=== PATIENT | female | born 1950 | race Native Hawaiian/Other Pacific Islander ===

== ENCOUNTER 2016-08-14 12:26 | Outpatient (CLI) | payer OTHER ==
[~2016-08-14 12:26] MED LIST: FLUT0.05 NAS; HYDR10TA47 PO; HYDR25TA15 PO; MONT10TA PO; PREDNISONE10 M1 PO; PRISTIQ100 MG PO; TRAZODONE300 MG PO; ZANTAC300 MG PO
[2016-08-14 12:44] LABS: PLATELET COUNT 265 K/uL (152-353)
[2016-08-14 13:21] LABS: POTASSIUM 4.5 mmol/L (3.6-5.2)
== END 2016-08-14 19:09 | disposition home or self-care (01) ==
LOC: LAB 12:26
PROVIDERS: Nurse Practitioner Family
DX: K21.9 Gastro-esophageal reflux disease without esophagitis (principal); Z00.00 Encounter for general adult medical examination without abnormal findings; Z79.899 Other long term (current) drug therapy; E78.5 Hyperlipidemia, unspecified; R73.9 Hyperglycemia, unspecified
CPT/HCPCS: 80053; 80061; 82306; 82607; 83036; 84439; 84443; 85027; 86803

== ENCOUNTER 2016-12-13 14:03 | Outpatient (CLI) | payer OTHER ==
[2016-12-13 14:31] LABS: POTASSIUM 4.3 mmol/L (3.6-5.2)
[2016-12-13 14:35] LABS: PLATELET COUNT 240 K/uL (152-353)
== END 2016-12-13 19:02 | disposition home or self-care (01) ==
LOC: LAB 14:03
PROVIDERS: Nurse Practitioner Family
DX: Z00.00 Encounter for general adult medical examination without abnormal findings (principal); R19.09 Other intra-abdominal and pelvic swelling, mass and lump; M79.89 Other specified soft tissue disorders; N39.0 Urinary tract infection, site not specified
CPT/HCPCS: 80053; 81000; 85027; 87086; 87088

== ENCOUNTER 2019-11-05 09:03 | Outpatient (CLI) | payer OTHER | END 2019-11-05 14:14 | disposition home or self-care (01) | LOC: RAD 09:03 | PROVIDERS: ATTEND Nurse Practitioner Family | DX: R11.0 Nausea (principal); R10.9 Unspecified abdominal pain ==

== ENCOUNTER 2019-11-09 09:26 | Outpatient (CLI) | payer OTHER | END 2019-11-09 23:59 | disposition home or self-care (01) | LOC: RESP 09:26 | DX: R07.89 Other chest pain (principal) ==

== ENCOUNTER 2019-11-12 07:27 | Outpatient (CLI) | payer OTHER ==
[~2019-11-12] VITALS: Ht 160 cm; Wt 68.0 kg
== END 2019-11-12 19:14 | disposition home or self-care (01) ==
LOC: NM 07:27
DX: R07.89 Other chest pain (principal)
CPT/HCPCS: A9500; J2785

== ENCOUNTER 2020-03-03 07:57 | Outpatient (CLI) | payer OTHER | END 2020-03-03 19:00 | disposition home or self-care (01) | LOC: US 07:57 | PROVIDERS: ATTEND Internal Medicine Cardiovascular Disease | DX: R09.89 Other specified symptoms and signs involving the circulatory and respiratory systems (principal) ==

== ENCOUNTER 2020-07-08 12:30 | Outpatient (CLI) | payer OTHER | END 2020-07-08 21:49 | disposition home or self-care (01) | LOC: MAMMO 12:30 → RAD 13:30 → MAMMO 21:49 | PROVIDERS: ATTEND Nurse Practitioner Family | DX: Z12.31 Encounter for screening mammogram for malignant neoplasm of breast (principal); Z13.820 Encounter for screening for osteoporosis; N95.8 Other specified menopausal and perimenopausal disorders ==

== ENCOUNTER 2021-03-22 09:33 | Outpatient (CLI) | payer OTHER | END 2021-03-22 20:21 | disposition home or self-care (01) | LOC: LABW 09:33 | PROVIDERS: ATTEND Nurse Practitioner Family | DX: K21.9 Gastro-esophageal reflux disease without esophagitis (principal); R41.82 Altered mental status, unspecified; I99.8 Other disorder of circulatory system; I63.9 Cerebral infarction, unspecified; R06.09 Other forms of dyspnea | CPT/HCPCS: 36415; 81000; 83880 ==

== ENCOUNTER 2021-03-30 07:43 | Outpatient (CLI) | payer OTHER | END 2021-03-30 19:21 | disposition home or self-care (01) | LOC: MRI 07:43 | PROVIDERS: ATTEND Nurse Practitioner Family | DX: K21.9 Gastro-esophageal reflux disease without esophagitis (principal); R41.82 Altered mental status, unspecified; I99.8 Other disorder of circulatory system; I63.9 Cerebral infarction, unspecified | CPT/HCPCS: 36415; 82565; 84520; A9576 ==

== ENCOUNTER 2021-06-01 07:47 | Outpatient (CLI) | payer OTHER | END 2021-06-01 19:07 | disposition home or self-care (01) | LOC: CT 07:47 | PROVIDERS: ATTEND Nurse Practitioner Family | DX: R07.81 Pleurodynia (principal); R22.2 Localized swelling, mass and lump, trunk | CPT/HCPCS: 36415; 82565; 84520; Q9963 ==

== ENCOUNTER 2021-07-17 09:20 | Outpatient (CLI) | payer OTHER | END 2021-07-17 19:08 | disposition home or self-care (01) | LOC: MAMMO 09:20 | PROVIDERS: ATTEND Nurse Practitioner Family | DX: Z12.31 Encounter for screening mammogram for malignant neoplasm of breast (principal) ==

== ENCOUNTER 2022-04-20 12:22 | Outpatient (CLI) | payer OTHER | END 2022-04-20 19:53 | disposition home or self-care (01) | LOC: CT 12:22 | PROVIDERS: ATTEND Nurse Practitioner Family | DX: S09.8XXA Other specified injuries of head, initial encounter (principal); G44.319 Acute post-traumatic headache, not intractable; Y92.89 Other specified places as the place of occurrence of the external cause ==

== ENCOUNTER 2022-05-02 12:49 | Outpatient (CLI) | payer OTHER | END 2022-05-02 19:29 | disposition home or self-care (01) | LOC: LABW 12:49 | PROVIDERS: ATTEND Internal Medicine Cardiovascular Disease | DX: Z79.899 Other long term (current) drug therapy (principal); R06.02 Shortness of breath | CPT/HCPCS: 36415; 80048; 83880 ==